=== PATIENT | male | born 1955 | race Caucasian/White ===

== ENCOUNTER 2016-11-04 12:39 | Emergency (ER) | payer MEDICARE, OTHER ==
[~2016-11-04] VITALS: Ht 172.7 cm; Wt 83.0 kg
[~2016-11-04 12:39] MED LIST: ADDE30 PO; ASPI-664 PO; CARV12.598 PO; DIAZ5TAB4 PO; ESCI20TA PO; FURO20TA3 PO; LISI-313 PO; MONT10TA21 PO; TEMA30CA6 PO; TRAM50TA2 PO
[2016-11-04 12:43] VITALS: Ht 172.7 cm; Wt 83.0 kg
[2016-11-04 13:24] LABS: ADD SCAN DIFF NO
[2016-11-04 13:25] LABS: BASOPHILS % 0.4 % (0.0-2.0); EOSINOPHILS # 0.1 10^3/ul (0.0-0.5); EOSINOPHILS % 0.7 % (0.0-7.0); HEMATOCRIT 44.9 % (42.0-52.0); HEMOGLOBIN 14.8 g/dl (14.0-18.0); LYMPHOCYTES # 1.1 10^3/ul (0.8-2.9); LYMPHOCYTES % 16.5 % (15.0-51.0); MEAN CORPUSCULAR HEMOGLOBIN 30.3 pg (29.0-33.0); MEAN CORPUSCULAR VOLUME 91.8 fl (82.0-101.0); MEAN PLATELET VOLUME 10.8 fl (7.4-10.4); MONOCYTE # 0.5 10^3/ul (0.3-0.9); MONOCYTES % 7.7 % (0.0-11.0); NEUTROPHIL # 5.2 10^3/ul (1.6-7.5); NEUTROPHILS % 74.6 % (39.0-77.0); PLATELET COUNT 203 10^3/UL (140-415); RED BLOOD COUNT 4.89 10^6/ul (4.70-6.10); RED CELL DISTRIBUTION WIDTH 13.8 % (11.5-14.5); WHITE BLOOD COUNT 6.9 10^3/ul (4.8-10.8)
[2016-11-04 13:27] LABS: ADD UMIC NO; URINE BILIRUBIN (Dip) NEGATIVE (NEGATIVE); URINE BLOOD (Dip) NEGATIVE (NEGATIVE); URINE COLOR LT. YELLOW (YELLOW); URINE GLUCOSE (Dip) NEGATIVE (NEGATIVE); URINE KETONES (Dip) NEGATIVE (NEGATIVE); URINE LEUKOCYTE ESTERASE (Dip) NEGATIVE (NEGATIVE); URINE NITRITE (Dip) NEGATIVE (NEGATIVE); URINE TOTAL PROTEIN (Dip) NEGATIVE (NEGATIVE); URINE UROBILINOGEN (Dip) 0.2 E.U./dL (0.1-1.0)
--- NOTE | 2016-11-04 13:39 | ERA ---
ER Documentation Chief Complaint Date/Time DATE: 11/04/16 Chief Complaint SI WANTS TO FROM BEE STING.FEELING DEPRESSED.HAD PREVIOUS ATTEMPT HPI The patient is a 61-year-old male, presenting to the ER because of suicidal ideation. The plans to have bee stings to from anaphylactic reaction. He has attempted to kill himself previously. He is homeless and had been very depressed. He denies auditory, visual hallucination, homicidal ideation. He denies headache, neck pain, chest pain, dyspnea, abdominal pain, vomiting, dysuria, diarrhea, constipation. He does not smoke nor drink nor does illicit drug Past medical history: Cardiomyopathy, ADD, depression, history of CHF, hypertension, dyslipidemia, asthma Past surgical history: Meningioma, rhinoplasty, bunionectomy, left foot ROS All systems reviewed and are negative except as per history of present illness. Medications Home Meds Reported Medications Aripiprazole* (Abilify*) 20 Mg Tablet, 20 MG PO DAILY, #30 TAB 11/04/16 Diazepam* (Diazepam*) 5 Mg Tablet, 5 MG PO DAILY Y for ANXIETY, TAB 03/18/16 Lisinopril* (Lisinopril*) 5 Mg Tablet, 5 MG PO DAILY, #30 TAB 03/18/16 Dextroamphetamine-Amphetamine (Adderall) 30 Mg Tab, 30 MG PO DAILY, TAB 11/13/14 Aspirin* (Aspirin* EC) 81 Mg Tablet.dr, 81 MG PO DAILY, TAB 10/29/14 Tramadol HCl (Tramadol HCl) 50 Mg Tab, 50 MG PO BID Y for PAIN, TAB 10/29/14 Temazepam* (Restoril*) 30 Mg Capsule, 30 MG PO HS Y for INSOMNIA, CAP 10/29/14 Montelukast Sodium* (Singulair*) 10 Mg Tablet, 10 MG PO HS, TAB 10/29/14 Carvedilol* (Coreg*) 12.5 Mg Tablet, 12.5 MG PO BID, TAB 10/29/14 Escitalopram Oxalate* (Lexapro*) 20 Mg Tablet, 20 MG PO DAILY, TAB 10/29/14 Furosemide* (Furosemide*) 20 Mg Tablet, 20 MG PO DAILY, TAB 10/29/14 Allergies Allergies: Coded Allergies: bee venom protein (honey bee) (Verified Allergy, Intermediate, 11/04/16) PMhx/Soc History of Surgery: Yes (BRAIN SURGERY 80,MRNINGIOMA,[id number],TONSILS, SEPTUM,RIGHT FOOT) Anesthesia Reaction: No Hx Neurological Disorder: No Hx Respiratory Disorders: Yes (ASTHMA) Hx Cardiac Disorders: Yes (CHF,HTN) Hx Psychiatric Problems: Yes (DEPRESSION,) Hx Miscellaneous Medical Probl: Yes (HEPATOMEGALY) Hx Alcohol Use: No Hx Substance Use: No Hx Tobacco Use: No Physical Exam Vitals Vital Signs Date Time Temp Pulse Resp B/P Pulse Ox O2 Delivery O2 Flow Rate FiO2 11/04/16 12:43 98.8 78 18 166/93 98 Physical Exam Const: No acute distress. Head: Atraumatic. Eyes: Normal Conjunctiva. ENT: Normal External Ears, Nose and Mouth. Neck: Full range of motion. No meningismus. Resp: Clear to auscultation bilaterally. Cardio: Regular rate and rhythm, no murmurs. Abd: Soft, non distended, normal bowel sounds, non tender. Skin: No petechiae or rashes. Back: No midline or flank tenderness. Ext: No cyanosis, or edema. Neur: Awake and alert. No focal deficit Psych: Depressed and suicidal Result Diagram: 11/04/16 1300 11/04/16 1300 Results 24 hrs Laboratory Tests Test 11/04/16 13:00 White Blood Count 6.910^3/ul Red Blood Count 4.8910^6/ul Hemoglobin 14.8g/dl Hematocrit 44.9% Mean Corpuscular Volume 91.8fl Mean Corpuscular Hemoglobin 30.3pg Mean Corpuscular Hemoglobin Concent 33.0g/dl Red Cell Distribution Width 13.8% Platelet Count 04793^3/UL Mean Platelet Volume 10.8fl Neutrophils % 74.6% Lymphocytes % 16.5% Monocytes % 7.7% Eosinophils % 0.7% Basophils % 0.4% Nucleated Red Blood Cells % 0.0/100WBC Neutrophils # 5.210^3/ul Lymphocytes # 1.110^3/ul Monocytes # 0.510^3/ul Eosinophils # 0.110^3/ul Basophils # 0.010^3/ul Nucleated Red Blood Cells # 0.010^3/ul Urine Color LT. YELLOW Urine Clarity CLEAR Urine pH 6.0 Urine Specific [place] 1.010 Urine Ketones NEGATIVE Urine Nitrite NEGATIVE Urine Bilirubin NEGATIVE Urine Urobilinogen 0.2 E.U./dL Urine Leukocyte Esterase NEGATIVE Urine Hemoglobin NEGATIVE Urine Glucose NEGATIVE% Urine Total Protein NEGATIVE Sodium Level 144mmol/L Potassium Level 3.9mmol/L Chloride Level 109mmol/L Carbon Dioxide Level 28mmol/L Anion Gap 11 Blood Urea Nitrogen 9mg/dl Creatinine 0.81mg/dl Glucose Level 127mg/dl Calcium Level 8.9mg/dl Total Bilirubin 0.8mg/dl Direct Bilirubin 0.00mg/dl Indirect Bilirubin 0.8mg/dl Aspartate Amino Transf (AST/SGOT) 19IU/L Alanine Aminotransferase (ALT/SGPT) 26IU/L Alkaline Phosphatase 83IU/L Total Protein 7.0g/dl Albumin 4.5g/dl Globulin 2.50g/dl Albumin/Globulin Ratio 1.80 Salicylates Level < 1.0mg/dl Urine Opiates Screen Negative Acetaminophen Level < 10.0ug/ml Urine Barbiturates Negative Urine Amphetamines Screen Positive Urine Benzodiazepines Screen Negative Urine Cocaine Screen Negative Urine Cannabinoids Negative Ethyl Alcohol Level < 10.0mg/dl Procedures/MDM MEDICAL MAKING DECISION: The patient is a 61-year-old male, presenting with acute suicidal ideation, acute amphetamine abuse. The differential diagnoses considered include but are not limited to drug-induced psychosis, psychosis, decompensated psychiatric illness, anxiety attack, panic attack Consultation: The patient was evaluated by telepsychiatrist who put him on [id number]. Departure Diagnosis: Primary Impression: Suicidal ideation Additional Impression: Amphetamine abuse Condition: Stable Comments He is medically cleared to be admitted to psychiatric hospital YANI JACOBS MD Nov 04, 2016 13:38
[2016-11-04 13:44] LABS: ALANINE AMINOTRANSFERASE 26 IU/L (13-69); ALBUMIN 4.5 g/dl (3.3-4.9); ALKALINE PHOSPHATASE 83 IU/L (42-121); ANION GAP 11 (8-16); ASPARTATE AMINO TRANSFERASE 19 IU/L (15-46); BILIRUBIN,INDIRECT 0.8 mg/dl (0-1.1); BILIRUBIN,TOTAL 0.8 mg/dl (0.2-1.3); BLOOD UREA NITROGEN 9 mg/dl (7-20); CALCIUM 8.9 mg/dl (8.4-10.2); CARBON DIOXIDE 28 mmol/L (21-31); CHLORIDE 109 mmol/L (97-110); CREATININE 0.81 mg/dl (0.61-1.24); GLUCOSE 127 mg/dl (70-220); POTASSIUM 3.9 mmol/L (3.5-5.1); SODIUM 144 mmol/L (135-144)
[2016-11-04] MEDS ORDERED: ARIP20TA7 PO (13:46)
[2016-11-04 13:50] LABS: BARBITURATES Negative (NEGATIVE); BENZODIAZEPINES Negative (NEGATIVE); CANNABINOIDS Negative (NEGATIVE); COCAINE Negative (NEGATIVE); OPIATES Negative (NEGATIVE)
[2016-11-04 13:51] LABS: ACETAMINOPHEN < 10.0 ug/ml (10.0-30.0); ETHANOL < 10.0 mg/dl; SALICYLATE < 1.0 mg/dl (5.0-30.0)
--- NOTE | 2016-11-04 14:26 | PSY ---
Date/Time of Note Date/Time of Note DATE: 11/04/16 TIME: 14:22 Psychiatric Subjective Eval Consent Pt consented to telemedicine: Yes Subjective Evaluation Patient location: emergency Chief Complaint: SI WANTS TO FROM BEE STING.FEELING DEPRESSED.HAD PREVIOUS ATTEMPT Reason for consult: D/W dR Francis History of present illness 61 YO HOMELESS disabled male self presenting to ED c/o depressed mood, feeling hopeless and helpless, sad, active SI with a plan to get bitten by a bee ( allergic to bee sting). Pt states, he is homeless and not able to move inot his [address] apartment yet, so he feels suicidal and will do it. No AH or Vh, no HI. Past psychiatric history prior SI and SA; last intp was 2 months ago; his outpt psychiatrist afew weeks ago; pt is on Celexa, Seroquel and Adderall Hospitalization: Suicidal Attempt(s) Medical history Problems Medical Problems: (1) Hypotension Status: Acute (2) Laceration Status: Acute (3) Oral thrush Status: Acute Allergies: Coded Allergies: bee venom protein (honey bee) (Verified Allergy, Intermediate, 11/04/16) Substance Abuse Substance use: No known substance abuse Social History Marital status: single Level of education: HS DPA/Conservatorship: No Occupation/Fci: on SSDI Psychiatric Objective Eval Physical Examination: Physical Examination: Not Applicable Sleep: Insomnia Appetite: Decreased Energy: Decreased Interest: Decreased Mental Status Examination: Appearance: Disheveled Eye Contact: Good Psychomotor Activity: Normal Behavior: Cooperative Speech: Clear AFFECT: Depressed Mood: Depressed Though Process: Linear Thought Content: Normal Suicidal: Yes Homicidal: No On 72 hour hold: No Orientation: x4 Cognition: Alert Insight: Impared Judgement: Impared Laboratory Results Laboratory Tests Test 11/04/16 13:00 White Blood Count 6.910^3/ul Red Blood Count 4.8910^6/ul Hemoglobin 14.8g/dl Hematocrit 44.9% Mean Corpuscular Volume 91.8fl Mean Corpuscular Hemoglobin 30.3pg Mean Corpuscular Hemoglobin Concent 33.0g/dl Red Cell Distribution Width 13.8% Platelet Count 87490^3/UL Mean Platelet Volume 10.8fl Neutrophils % 74.6% Lymphocytes % 16.5% Monocytes % 7.7% Eosinophils % 0.7% Basophils % 0.4% Nucleated Red Blood Cells % 0.0/100WBC Neutrophils # 5.210^3/ul Lymphocytes # 1.110^3/ul Monocytes # 0.510^3/ul Eosinophils # 0.110^3/ul Basophils # 0.010^3/ul Nucleated Red Blood Cells # 0.010^3/ul Urine Color LT. YELLOW Urine Clarity CLEAR Urine pH 6.0 Urine Specific [place] 1.010 Urine Ketones NEGATIVE Urine Nitrite NEGATIVE Urine Bilirubin NEGATIVE Urine Urobilinogen 0.2 E.U./dL Urine Leukocyte Esterase NEGATIVE Urine Hemoglobin NEGATIVE Urine Glucose NEGATIVE% Urine Total Protein NEGATIVE Sodium Level 144mmol/L Potassium Level 3.9mmol/L Chloride Level 109mmol/L Carbon Dioxide Level 28mmol/L Anion Gap 11 Blood Urea Nitrogen 9mg/dl Creatinine 0.81mg/dl Glucose Level 127mg/dl Calcium Level 8.9mg/dl Total Bilirubin 0.8mg/dl Direct Bilirubin 0.00mg/dl Indirect Bilirubin 0.8mg/dl Aspartate Amino Transf (AST/SGOT) 19IU/L Alanine Aminotransferase (ALT/SGPT) 26IU/L Alkaline Phosphatase 83IU/L Total Protein 7.0g/dl Albumin 4.5g/dl Globulin 2.50g/dl Albumin/Globulin Ratio 1.80 Salicylates Level < 1.0mg/dl Urine Opiates Screen Negative Acetaminophen Level < 10.0ug/ml Urine Barbiturates Negative Urine Amphetamines Screen Positive Urine Benzodiazepines Screen Negative Urine Cocaine Screen Negative Urine Cannabinoids Negative Ethyl Alcohol Level < 10.0mg/dl Assessment and Plan Assessment/Diagnosis House I: major depressive disroder recurrent severe House II: defered House III: as per record House IV: severe House V: gaf 25 Recommendation/Plan Medication Management please verify doses of his current meds and resume while in ED Psychotherapy defer to inpt Pt. Caregiver/Family Education na Follow-up/Disposition please transfer to inpt psych voluntary for dts GELY PAGE MD Nov 04, 2016 14:26
[2016-11-04 18:56] VITALS: BP 141/85; PULSE 67; RESP 18; TEMP 98.1
== END 2016-11-04 18:59 ==
LOC: EDUNIT# 12:39 → E/R 12:39
DX: R45.851 Suicidal ideations (principal); F15.10 Other stimulant abuse, uncomplicated; I50.9 Heart failure, unspecified; J45.909 Unspecified asthma, uncomplicated; I10 Essential (primary) hypertension; Z79.82 Long term (current) use of aspirin
CPT/HCPCS: 80053; 80306; 80307; 81003; 85025; 99285

== ENCOUNTER 2016-12-10 07:33 | Emergency (ER) | payer MEDICARE, OTHER ==
[~2016-12-10] VITALS: Ht 182.9 cm; Wt 83.0 kg
[~2016-12-10 07:33] MED LIST changes: +ARIP20TA7 PO
[2016-12-10 07:35] VITALS: Ht 182.9 cm; Wt 83.0 kg
--- NOTE | 2016-12-10 08:58 | ERD ---
ER Documentation Chief Complaint Date/Time DATE: 12/10/16 TIME: 08:55 Chief Complaint possible foreign body on lt ear HPI Patient is a 61-year-old male who presents with gradual onset, constant, sharp pain to left ear after a foam ear plug broke off in his ear canal last night. He states that he is not able to hear out of his left ear. He denies drainage from his ear. ROS All systems reviewed and are negative except as per history of present illness. Medications Home Meds Reported Medications Aripiprazole* (Abilify*) 20 Mg Tablet, 20 MG PO DAILY, #30 TAB 11/04/16 Diazepam* (Diazepam*) 5 Mg Tablet, 5 MG PO DAILY Y for ANXIETY, TAB 03/18/16 Lisinopril* (Lisinopril*) 5 Mg Tablet, 5 MG PO DAILY, #30 TAB 03/18/16 Dextroamphetamine-Amphetamine (Adderall) 30 Mg Tab, 30 MG PO DAILY, TAB 11/13/14 Aspirin* (Aspirin* EC) 81 Mg Tablet.dr, 81 MG PO DAILY, TAB 10/29/14 Tramadol HCl (Tramadol HCl) 50 Mg Tab, 50 MG PO BID Y for PAIN, TAB 10/29/14 Temazepam* (Restoril*) 30 Mg Capsule, 30 MG PO HS Y for INSOMNIA, CAP 10/29/14 Montelukast Sodium* (Singulair*) 10 Mg Tablet, 10 MG PO HS, TAB 10/29/14 Carvedilol* (Coreg*) 12.5 Mg Tablet, 12.5 MG PO BID, TAB 10/29/14 Escitalopram Oxalate* (Lexapro*) 20 Mg Tablet, 20 MG PO DAILY, TAB 10/29/14 Furosemide* (Furosemide*) 20 Mg Tablet, 20 MG PO DAILY, TAB 10/29/14 Allergies Allergies: Coded Allergies: bee venom protein (honey bee) (Verified Allergy, Intermediate, 11/04/16) PMhx/Soc Past medical history: CHF due to viral illness Past surgical history: Bilateral hernia repair, laceration repair to right leg Social history: Lives in rehab facility, denies tobacco or alcohol. History of Surgery: Yes (BRAIN SURGERY 80,MRNINGIOMA,[id number],TONSILS, SEPTUM,RIGHT FOOT) Anesthesia Reaction: No Hx Neurological Disorder: No Hx Respiratory Disorders: Yes (ASTHMA) Hx Cardiac Disorders: Yes (CHF,HTN) Hx Psychiatric Problems: Yes (DEPRESSION,) Hx Miscellaneous Medical Probl: Yes (HEPATOMEGALY) Hx Alcohol Use: No Hx Substance Use: No Hx Tobacco Use: No Smoking Status: Never smoker FmHx Family History: No coronary disease, No diabetes Physical Exam Vitals Vital Signs Date Time Temp Pulse Resp B/P Pulse Ox O2 Delivery O2 Flow Rate FiO2 12/10/16 07:35 97.9 86 18 142/82 98 Physical Exam Const: Alert, no acute distress Head: Atraumatic Eyes: Normal Conjunctiva, no pallor, no icterus ENT: Normal External Ears, Nose and Mouth. [place] foam ear plug in auditory canal Skin: No petechiae or rashes Ext: No cyanosis, or edema Neur: Awake and alert Psych: Normal Mood and Affect Procedures/MDM MDM: Patient is a 61-year-old male who presents with ear pain and loss of hearing after having an ear plug break off in his left ear canal. The ear plug was removed using alligator forceps without incident. The patient states that his pain is completely resolved and his hearing is completely normalized after removal of the ear plug. Repeat exam after removal shows no residual foreign body, intact tympanic membrane and no erythema. Departure Diagnosis: Primary Impression: Ear foreign body Encounter type: initial encounter Laterality: left Qualified Code: T16.2XXA - Ear foreign body, left, initial encounter Condition: CONNER Mejia MD Dec 10, 2016 08:58
== END 2016-12-10 10:35 | disposition home or self-care (01) ==
LOC: E/R 07:33
DX: T16.2XXA Foreign body in left ear, initial encounter (principal); J45.909 Unspecified asthma, uncomplicated; I50.9 Heart failure, unspecified; I10 Essential (primary) hypertension; X58.XXXA Exposure to other specified factors, initial encounter; Y92.9 Unspecified place or not applicable; Z79.82 Long term (current) use of aspirin